=== PATIENT | female | born 1985 | race Caucasian/White ===

== ENCOUNTER 2022-05-02 06:00 | Day surgery (SDC) | payer OTHER ==
[~2022-05-02] VITALS: Ht 152.4 cm; Wt 95.3 kg
[~2022-05-02 06:00] MED LIST: PRENATAL TABLE1 EAC3 PO
== END 2022-05-02 16:00 | disposition home or self-care (01) ==
LOC: CIR.AMB 06:00 → LAB 06:00
PROVIDERS: ATTEND Obstetrics & Gynecology
DX: N93.9 Abnormal uterine and vaginal bleeding, unspecified (principal); Z20.828 Contact with and (suspected) exposure to other viral communicable diseases